=== PATIENT | male | born 1990 | race African-American/Black ===

== ENCOUNTER 2020-10-09 10:17 | Emergency (ER) | payer MEDICAID ==
[~2020-10-09] VITALS: Ht 172.7 cm; Wt 75.0 kg
[2020-10-09] MEDS ORDERED: LORAZEPAM 2MG/ML CPJ IM ONE (10:45)
[2020-10-09] MEDS ORDERED: OLANZAPINE 10 MG/VIAL IM ONE (10:45)
[2020-10-09 11:07] LABS: BASOPHILS % 0.4 % (0.0-2.0); EOSINOPHILS % 0.4 % (0.0-5.0); HEMATOCRIT. 36.9 % (42.0-52.0); HEMOGLOBIN. 12.3 g/dL (14.0-18.0); LYMPHOCYTES % 12.3 % (20.0-50.0); MEAN CORPUSCULAR HEMOGLOBIN 29.4 pg (28.0-32.0); MEAN CORPUSCULAR VOLUME 88.3 fL (80.0-94.0); MEAN PLATELET VOLUME 8.2 fl (7.4-10.4); MONOCYTES % 10.2 % (2.0-8.0); NEUTROPHILS % 76.7 % (40.0-76.0); PLATELET 308 x1000/uL (130-400); RED BLOOD CELL COUNT 4.17 mill/uL (4.7-6.1); RED CELL DISTRIBUTION WIDTH 14.6 % (11.6-14.6)
[2020-10-09 11:17] LABS: CHLORIDE 107 mEq/L (98-107)
[2020-10-09 11:22] LABS: ETHANOL BLOOD < 10 mg/dL
[2020-10-09 12:33] LABS: CLARITY URINE CLEAR (CLEAR); COLOR URINE DARK YELLOW (YELLOW); KETONES URINE TRACE (NEGATIVE); LEUKOCYTE ESTERASE URINE NEGATIVE (NEGATIVE); NITRITE URINE NEGATIVE (NEGATIVE); OCCULT BLOOD URINE NEGATIVE (NEGATIVE); PROTEIN URINE NEGATIVE (NEGATIVE); SPECIFIC GRAVITY URINE 1.038 (1.005-1.030)
[2020-10-09 13:11] LABS: *AMPHETAMINES SCREEN URINE PRESUMTIVE POSITIVE (NEGATIVE); *BARBITURATES SCREEN URINE NEGATIVE (NEGATIVE); *BENZODIAZEPINES SCREEN URINE NEGATIVE (NEGATIVE); *COCAINE SCREEN URINE NEGATIVE (NEGATIVE)
[2020-10-09 13:13] LABS: CANNABINOID URINE SCREEN PRESUMTIVE POSITIVE (NEGATIVE); METHADONE URINE SCREEN NEGATIVE (NEGATIVE); OPIATES URINE SCREEN NEGATIVE (NEGATIVE); PHENCYCLIDINE URINE SCREEN NEGATIVE (NEGATIVE)
[2020-10-10] MEDS ORDERED: OLANZAPINE 5MG TABLET PO SCH (07:30)
[2020-10-10] MEDS ORDERED: LORAZEPAM 1MG TABLET PO ONE (07:30)
[2020-10-11 11:50] VITALS: BP 136/84
== END 2020-10-11 16:43 | disposition home or self-care (01) ==
LOC: ER 10:17
DX: F20.9 Schizophrenia, unspecified (principal); S61.512A Laceration without foreign body of left wrist, initial encounter; F15.129 Other stimulant abuse with intoxication, unspecified; R45.850 Homicidal ideations; F31.9 Bipolar disorder, unspecified; Z75.1 Person awaiting admission to adequate facility elsewhere; Z91.030 Bee allergy status; X78.9XXA Intentional self-harm by unspecified sharp object, initial encounter; Y93.89 Activity, other specified; Y92.018 Other place in single-family (private) house as the place of occurrence of the external cause
CPT/HCPCS: 36415; 80053; 80305; 80307; 80320; 80329; 81003; 85025; 87426; 96372; 99285; J2060; J3490; G0480